=== PATIENT | female | born 1950 | race Caucasian/White ===

== ENCOUNTER 2017-01-15 08:30 | Outpatient (CLI) | payer MEDICARE, BC | END 2017-01-15 08:31 | disposition home or self-care (01) | DX: Z12.31 Encounter for screening mammogram for malignant neoplasm of breast (principal) ==

== ENCOUNTER 2017-01-15 08:31 | Outpatient (CLI) | payer MEDICARE, BC | END 2017-01-15 08:32 | disposition home or self-care (01) | DX: M85.88 Other specified disorders of bone density and structure, other site (principal) ==

== ENCOUNTER 2018-02-10 13:29 | Outpatient (CLI) | payer MEDICARE, BC ==
--- NOTE | 2018-02-12 15:10 | Mammography Report ---
Procedure Date: 02/10/2018 Accession Number: [id number] / [id number] Procedure: DWIGHT - Screening Mammo Dig Bilat CPT Code: FULL RESULT: EXAM: Screening Mammo Dig Bilat DATE: 02/10/2018 2:00 PM CLINICAL HISTORY: 67-year-old for screening COMPARISON: 01/15/2017, 11/03/2014, 11-12, 12/17/2012, 07/03/2010 TECHNIQUE: Bilateral CC and MLO views were obtained. FINDINGS: The breasts demonstrate scattered fibroglandular densities bilaterally. No suspicious masses, clustered microcalcifications, or regions of architectural distortion are identified. IMPRESSION: Negative examination RECOMMENDATION: Routine annual screening unless otherwise clinically indicated. BIRADS CATEGORY 1: Negative STANDARD QUALIFYING STATEMENTS: 1. This examination was reviewed with the aid of Computer-Aided Detection (CAD). 2. A negative or benign imaging report should not delay biopsy if clinically suspicious findings are present. Consider surgical consultation if warrented. More than 5% of cancers are not identified by imaging. 3. Dense breasts may obscure an underlying neoplasm.
== END 2018-02-10 13:30 | disposition home or self-care (01) ==
LOC: DI 13:29
PROVIDERS: ATTEND Internal Medicine
DX: Z12.31 Encounter for screening mammogram for malignant neoplasm of breast (principal)
CPT/HCPCS: 77067

== ENCOUNTER 2019-02-16 13:07 | Outpatient (CLI) | payer MEDICARE, BC ==
--- NOTE | 2019-02-16 15:07 | XRAY Report ---
Reason: R KNEE PAIN SWELLING Procedure Date: 02/16/2019 Accession Number: [id number] / [id number] Procedure: XR - Knee 3 View RT CPT Code: FULL RESULT: EXAM: RIGHT KNEE RADIOGRAPHY. EXAM DATE: 02/16/2019 01:34 PM. CLINICAL HISTORY: Right knee pain swelling. COMPARISON: None. TECHNIQUE: 3 views. FINDINGS: Bones: Normal. No fractures or bone lesions. Joints: There is a small joint effusion. No subluxation. There is mild marginal osteophytosis at the weightbearing compartments and along the medial patella. Soft Tissues: Normal. No soft tissue swelling. IMPRESSION: Mild degenerative changes. RADIA
== END 2019-02-16 13:08 | disposition home or self-care (01) ==
LOC: DI 13:07
PROVIDERS: ATTEND Physician Assistant Medical
DX: M17.11 Unilateral primary osteoarthritis, right knee (principal)

== ENCOUNTER 2019-02-25 16:53 | Outpatient (CLI) | payer MEDICARE, BC ==
--- NOTE | 2019-02-25 20:41 | MRI Report ---
Reason: RIGHT KNEE PAIN Procedure Date: 02/25/2019 Accession Number: [id number] / [id number] Procedure: MRI - Knee RT W/O CPT Code: FULL RESULT: EXAM: RIGHT KNEE MRI WITHOUT CONTRAST EXAM DATE: 02/25/2019 05:54 PM. CLINICAL HISTORY: Right knee pain. COMPARISON: KNEE 3 VIEW RT 02/16/2019 1:23 PM. TECHNIQUE: Multiplanar, multisequence T1-weighted and fluid-sensitive sequences of the knee without contrast. Other: None. FINDINGS: Bones: Focal marrow edema at the anterior aspect of the lateral tibial plateau with adjacent fat pad edema. Mild marrow edema at the posterior aspect lateral tibial plateau. Moderate chondromalacia at the lateral tibiofemoral compartment. Articular Cartilage: Severe chondromalacia at the medial patellar facet. Mild chondromalacia at the trochlear groove. Medial Meniscus: The medial meniscus is intact. Lateral Meniscus: Probable tear at the posterior horn of the lateral meniscus at the meniscal root. Cruciate Ligaments: The anterior and posterior cruciate ligaments are intact. Collateral Ligaments: The medial collateral and lateral collateral ligamentous structures are intact. Tendons: The quadriceps, patellar, semimembranosus, and popliteus tendons are unremarkable. Musculature: No edema or fatty atrophy. Other: Moderate quantity of fluid at the lateral patellar recess. Cyst, 1.4 cm in height, 9 mm in AP dimension and 1.5 cm in transverse dimension at the posterior aspect of the medial tibial plateau. At the midline of the posterior aspect proximal tibia deep to the popliteal vein, is a multiloculated synovial cyst 2.8 cm in height and 1.4 x 1.4 cm in transverse dimension. Small fluid collection at the gastrocnemius semimembranosus bursa. No loose bodies. The medial and lateral retinacula are intact. The subcutaneous tissues and fat pads are unremarkable. IMPRESSION: 1. Probable tear at the posterior horn lateral meniscus at the meniscal root. 2. Moderate chondromalacia at the lateral tibiofemoral compartment. 3. Severe chondromalacia at the medial patellar facet. 4. Focal bone bruise at the anterior aspect lateral tibial plateau with adjacent fat pad edema. Mild patchy marrow edema at the posterior aspect lateral tibial plateau. RADIA
== END 2019-02-25 16:54 | disposition home or self-care (01) ==
LOC: DI 16:53
PROVIDERS: ATTEND Physician Assistant Medical
DX: M22.41 Chondromalacia patellae, right knee (principal)

== ENCOUNTER 2020-10-18 14:31 | Outpatient (CLI) | payer MEDICARE, BC ==
--- NOTE | 2020-10-19 15:07 | Mammography Report ---
BILATERAL DIGITAL SCREENING MAMMOGRAM 3D/2D: 10/18/2020 CLINICAL: Routine screening. Comparison is made to exams dated: 01/15/2017 mammogram, 02/10/2018 mammogram, and 11/03/2014 mammogram - [facility]. There are scattered fibroglandular elements in both breasts. No significant masses, calcifications, or other findings are seen in either breast. There has been no significant interval change. IMPRESSION: NEGATIVE There is no mammographic evidence of malignancy. A 1 year screening mammogram is recommended. This exam was interpreted at Station ID: [id number]. NOTE: For mammograms, a report in lay terms will be sent to the patient. Approximately 15% of breast malignancies will not be visualized mammographically. In the management of a palpable breast mass, a negative mammogram must not discourage biopsy of a clinically suspicious lesion. Electronically Signed By: Theo Vaughan M.D. ar/penrad:10/18/2020 15:08:00 ACR BI-RADS Category 1: Negative 3341F PARENCHYMAL PATTERN: (A) - The breast(s) demonstrate(s) scattered fibroglandular densities. BI-RADS CATEGORY: (1) - 1 RECOMMENDATION: (ANNUAL) - Recommend routine annual screening mammography. [id number] 1 year screening LATERALITY: (B)
== END 2020-10-18 14:32 | disposition home or self-care (01) ==
LOC: DI 14:31
PROVIDERS: ATTEND Internal Medicine
DX: Z12.31 Encounter for screening mammogram for malignant neoplasm of breast (principal)

== ENCOUNTER 2020-10-18 14:33 | Outpatient (CLI) | payer MEDICARE, BC ==
--- NOTE | 2020-10-18 16:38 | DEXA Report ---
PROCEDURE: Dexa Spine and/or Hip INDICATIONS: POST MENOPAUSAL TECHNIQUE: Dual energy x-ray absorptiometry (DXA) was performed on a One Hour Translation System. Regions measur ed are the AP Spine, femoral neck, and if needed forearm. COMPARISON: DEXA 01/15/2017 FINDINGS: Lumbar Spine: Bone Mineral Density 1.140 g/cm/cm,T score -0.3, compared to -0.5 on prior exam. Left Hip: Bone Mineral Density 0.819 g/cm/cm,T score -1.5, compared to -1.3 on prior exam. Left Femoral Neck: Bone Mineral Density 0.773 g/cm/cm, T score -1.9, compared to -1.6 on prior exam. (T score greater or equal to -1.0: NORMAL) (T score from -1.1 to -2.4: OSTEOPENIA) (T score less than or equal to -2.5 to: OSTEOPOROSIS) Impression: Most prominent osteopenia is present within the left femoral neck as above. Overall appea julia of osteopenia has been progressive compared to prior exam. Patients with diagnosis of osteoporosis or osteopenia should have regular bone mineral density assess ment. For those eligible for Medicare, routine testing is allowed once every 2 years. Testing frequ ency can be increased for patients who have rapidly progressing disease or for those who are receivin g medical therapy to restore bone mass. Reviewed by: Mari Groves MD on 10/18/2020 4:37 PM PST Approved by: Mari Groves MD on 10/18/2020 4:37 PM PST Station ID: [id number]
== END 2020-10-18 14:34 | disposition home or self-care (01) ==
LOC: DI 14:33
PROVIDERS: ATTEND Internal Medicine
DX: Z13.820 Encounter for screening for osteoporosis (principal); N95.8 Other specified menopausal and perimenopausal disorders; M85.88 Other specified disorders of bone density and structure, other site

== ENCOUNTER 2021-10-06 15:48 | Outpatient (CLI) | payer MEDICARE, BC ==
--- NOTE | 2021-10-06 16:52 | Ultrasound Report ---
PROCEDURE: Ext Limited Non Vascular INDICATIONS: RIGHT HAND, 3 LUMPS UNLAR WRIST TECHNIQUE: Real-time scanning was performed of the right wrist, with image documentation. COMPARISON: None. FINDINGS: Synovial fluid collections surrounding the tendon within the ulnar aspect of the wrist and fifth digit is present. IMPRESSION: Synovial fluid surrounding the tendon within the ulnar aspect of the wrist and fifth dig it. Initial further assessment with MRI of the hand and wrist is recommended. Reviewed by: Jhon Reis MD on 10/06/2021 4:51 PM [facility] Approved by: Jhon Reis MD on 10/06/2021 4:51 PM [facility] Station ID: [id number]
== END 2021-10-06 15:49 | disposition home or self-care (01) ==
LOC: DI 15:48
PROVIDERS: ATTEND Physician Assistant
DX: R93.6 Abnormal findings on diagnostic imaging of limbs (principal)

== ENCOUNTER 2022-06-21 09:55 | Day surgery (SDC) | payer MEDICARE, BC ==
[~2022-06-21 09:55] MED LIST: BRIMONIDINE 0.2% OPHTH DROPS 5 ML ONE; BSS/LIDOCAINE/EPINEPHRINE 1 ML VIAL ONE; CYCLOPENTOLATE 1% OPHTH DROPS 2 ML ONE; EPINEPHrine 1 MG/ML AMP ONE; KETOROLAC 0.45% OPHTH DROPS ONE; PHENYLEPHRINE 2.5% OPHTH 2 ML DROPS ONE; PROPARACAINE 0.5% OPHTH DROPS 15 ML ONE; TIMOLOL 0.5% OPHTH DROPS ONE; TRIAMCIN/MOXIFLOX OPHTHALMIC 0.6 ML VIAL IO ONE; VANCOMYCIN OPHTH (TOPICAL) 10 MG/ML SYRINGE ONE
[2022-06-21] MEDS ORDERED: LACTATED RINGERS 1,000 ML IV ONE (10:20)
--- NOTE | 2022-06-21 10:51 | ANESTHESIA ---
Pre-Anesthesia VS, & Labs Height: 5 ft 4 in Weight (kg): 64 kg Body Mass Index: 24.2 BMI Classification: Normal - NPO >8 hours <Dany Barnhart - Last Filed: 06/21/22 10:49> - NPO >8 hours - Is Patient ?: No <Marylin Larson E - Last Filed: 06/21/22 10:59> - Diagnosis R senile combined cataract (Dany Barnhart) - Procedure Extraction R cataract w IOL (Dany Branhart) Vital Signs: Temp Pulse Resp BP Pulse Ox O2 Flow Rate 36.3 C L 63 11 L 147/73 H 100 06/21/22 10:14 06/21/22 10:14 06/21/22 10:14 06/21/22 10:14 06/21/22 10:14 Home Medications and Allergies <Dany Barnhart - Last Filed: 06/21/22 10:49> <Marylin Larson E - Last Filed: 06/21/22 10:59> Home Medications: Ambulatory Orders Simvastatin [Zocor] 10 mg PO DAILY 06/21/22 Simvastatin [Zocor] 10 mg PO DAILY 06/21/22 Allergies/Adverse Reactions: Allergies Allergy/AdvReac Type Severity Reaction Status Date / Time diphenhydramine AdvReac Unknown Verified 06/21/22 10:33 [From Benadryl] Anes History & Medical History - Anesthetic History Anesthesia Complications: reports: No previous complications Family history of Anesthesia Complications: Denies Family history of Malignant Hyperthermia: Denies - Medical History Cardiovascular: reports: High cholesterol Pulmonary: reports: None Gastrointestinal: reports: Colon polyps Urinary: reports: None Musculoskeletal: reports: Osteoarthritis Endocrine/Autoimmune: reports: None Skin: reports: None - Surgical History General: reports: Colonoscopy <Dany Barnhart P - Last Filed: 06/21/22 10:49> - Anesthetic History Anesthesia Complications: reports: No previous complications Family history of Anesthesia Complications: Denies Family history of Malignant Hyperthermia: Denies - Medical History Cardiovascular: reports: High cholesterol Pulmonary: reports: None Gastrointestinal: reports: Colon polyps Urinary: reports: None Musculoskeletal: reports: Osteoarthritis Endocrine/Autoimmune: reports: None Smoking Status: Never smoker Psychosocial: reports: Alcohol (occasional wine) History of Cancer?: No - Surgical History General: reports: Colonoscopy <Marylin Larson E - Last Filed: 06/21/22 10:59> Exam General: Alert, Oriented x3, Cooperative Mouth Openin Fingerbreadth Neck Mobility: Normal Mallampati classification: II <Dany Barnhart P - Last Filed: 06/21/22 10:49> General: Alert, Oriented x3, Cooperative Dental: WNL Mouth Openin Fingerbreadth Neck Mobility: Normal Mallampati classification: I Respiratory: Lungs clear Cardiovascular: Regular rate <Marylin Larson E - Last Filed: 06/21/22 10:59> Plan Anesthesia Type: MAC Consent for Procedure(s) Verified and Reviewed: Yes Code Status: Attempt Resuscitation ASA classification: 2-Mild systemic disease Is this case an emergency?: No <Marylin Larson E - Last Filed: 06/21/22 10:59>
[2022-06-21] MEDS ORDERED: MIDAZOLAM 2 MG/2 ML VIAL ONE (10:53)
[2022-06-21] MEDS ORDERED: BRIMONIDINE 0.2% OPHTH DROPS 5 ML OPTH ONE (11:23)
[2022-06-21] MEDS ORDERED: EPINEPHrine 1 MG/ML AMP IR ONE (11:23)
[2022-06-21] MEDS ORDERED: BSS/LIDOCAINE/EPINEPHRINE 1 ML SYRINGE IO ONE (11:24)
[2022-06-21] MEDS ORDERED: TIMOLOL 0.5% OPHTH DROPS OPTH ONE (11:24)
[2022-06-21] MEDS ORDERED: TRIAMCIN/MOXIFLOX OPHTHALMIC 0.6 ML VIAL IO ONE (11:24)
[2022-06-21] MEDS ORDERED: PROPARACAINE 0.5% OPHTH DROPS 15 ML EACHEYE ONE (11:25)
[2022-06-21] MEDS ORDERED: VANCOMYCIN OPHTH (TOPICAL) 10 MG/ML SYRINGE TOP ONE (11:25)
[2022-06-21] MEDS ORDERED: LACTATED RINGERS 700 ML IV ONE (11:32)
--- NOTE | 2022-06-21 11:42 | OPERATIVE REPORT ---
Operative Report - Procedure Note Pathology: Date of Surgery: 06/21/22 Preop Dx: Visually significant cataract right eye. This was the first cataract surgery. Postop Dx: Same Procedure: Phacoemulsification with posterior chamber intraocular lens implant right eye Surgeon: Dr. Yaniv Chou Anesthesia: Monitored anesthesia care Complications: None Operative Indications: This is a 72-year-old F with progressive vision loss in the right eye due to 3+ nuclear sclerotic and trace posterior subcapsular cataract. Best corrected visual acuity was 20/30 with glare to 20/60 vision in the right eye. Indications for surgery were: - Overall decrease in vision - Difficulty seeing words, closed captions, or game scores on TV - Difficulty seeing street signs - Difficulty driving in low light or at night - Difficulty driving at night because of headlights from other vehicles - Difficulty with glare or bright lights in any situation The patient was consented at length concerning the risks and benefits of cataract surgery after which the patient expressed a desire to proceed with surgery. Operative Procedure: The patient was taken into OR#3 and placed under monitored anesthesia care. A surgical time-out was conducted confirming correct patient, correct procedure, and correct surgical site. The patient was given topical anesthesia and then prepped and draped in the usual sterile fashion. The eye was entered at the 6 and 3 oclock positions. Intracameral Shugarcaine was injected into the anterior chamber followed by a dispersive viscoelastic. A continuous-tear curvilinear capsulorhexis was performed. The nucleus was hydrodissected and phacoemulsified. The cortex was evacuated using automated infusion and aspiration. A cohesive viscoelastic was injected into the capsular bag and a 20.5 diopter intraocular lens was inserted into the bag. Infusion and aspiration were used to evacuate the viscoelastic materials from the eye. The wounds were hydrated and the eye inflated to physiologic pressure using balanced salt solution. Approximately 0.25ml of a mixture of triamcinolone and moxifloxacin was injected trans-sclerally into the vitreous in the inf erotemporal quadrant using a 30 gauge cannula. An additional 0.55ml of a mixture of triamcinolone and moxifloxacin was injected subconjunctivally in the superior quadrant for infection and inflammation prophylaxis. Wound integrity was checked with Weck-Susan sponges. The patient was taken from the operating room in good condition and given post-op instructions.
[2022-06-21 11:48] VITALS: BP 120/58
--- NOTE | 2022-06-21 11:54 | ANESTHESIA POST OP EVALUATION ---
Anesthesia Post Eval - Post Anesthesia Eval Vitals: Last Vital Signs Temp 36.2 C L 06/21/22 11:32 Pulse 63 06/21/22 11:32 Resp 16 06/21/22 11:45 BP 120/58 L 06/21/22 11:45 Pulse Ox 99 06/21/22 11:45 O2 Flow Rate CV Function Including HR & BP: Stable Pain Control: Satisfactory Nausea & Vomiting: Negative Mental Status: Baseline Respiratory Status: Airway Patent Hydration Status: Satisfactory Anesthesia Complications: None
== END 2022-06-21 09:56 | disposition home or self-care (01) ==
LOC: SDS 09:55
PROVIDERS: ATTEND Ophthalmology
DX: H25.811 Combined forms of age-related cataract, right eye (principal)
CPT/HCPCS: 66984; A9270; J3490; J7120

== ENCOUNTER 2023-06-05 08:19 | Outpatient (CLI) | payer MEDICARE, BC ==
--- NOTE | 2023-06-07 08:23 | Mammography Report ---
BILATERAL DIGITAL SCREENING MAMMOGRAM 3D/2D: 06/05/2023 CLINICAL: Routine screening. Comparison is made to exams dated: 10/18/2020 mammogram, 02/10/2018 mammogram, 01/15/2017 mammogram, an d 11/03/2014 mammogram - [facility]. Both breasts are heterogeneously dense, which may obscure small masses (category c / 51-75% glandular tissue). There is an asymmetry in the left breast middle depth superior region seen on the mediolateral obliqu e view only. No other significant masses, calcifications, or other findings are seen in either breast. IMPRESSION: INCOMPLETE: NEEDS ADDITIONAL IMAGING EVALUATION The asymmetry in the left breast is indeterminate. Additional views with possible ultrasound are rec ommended. Based on the Tyrer Cuzick model (a risk assessment model) the patients lifetime risk is 3.7% and her 10 year risk is 3.0%. According to the ACR, ACS, and NCCN guidelines, an annual breast MRI exam darian g with mammogram is recommended if the patients lifetime risk is 20% or greater. This exam was interpreted at Station ID: [id number]. NOTE: For mammograms, a report in lay terms will be sent to the patient. Approximately 15% of breast malignancies will not be visualized mammographically. In the management of a palpable breast mass, a negative mammogram must not discourage biopsy of a clinically suspicious lesion. Electronically Signed By: Evelyne barnett/nick:06/06/2023 17:11:55 ACR BI-RADS Category 0: Incomplete 3340F PARENCHYMAL PATTERN: (D) - The breast(s) demonstrate(s) heterogeneously dense fibroglandular charisse william. BI-RADS CATEGORY: (0) - 0 Mammo and [place] [id number] Immediate follow-up LATERALITY: (B)
== END 2023-06-05 08:20 | disposition home or self-care (01) ==
LOC: DI 08:19
PROVIDERS: ATTEND Internal Medicine
DX: Z12.31 Encounter for screening mammogram for malignant neoplasm of breast (principal); R92.8 Other abnormal and inconclusive findings on diagnostic imaging of breast

== ENCOUNTER 2023-06-05 08:19 | Outpatient (CLI) | payer MEDICARE, BC ==
--- NOTE | 2023-06-05 11:51 | DEXA Report ---
PROCEDURE: Dexa Spine and/or Hip INDICATIONS: POST MENOPAUSAL TECHNIQUE: Dual energy x-ray absorptiometry (DXA) was performed on a Incentive System. Regions measur ed are the AP Spine, femoral neck, and if needed forearm. COMPARISON: DEXA 10/18/2020 FINDINGS: Lumbar Spine: Bone Mineral Density 1.060 g/cm/cm,T score -1.0, compared to -0.3. Left Femoral Neck: Bone Mineral Density 0.762 g/cm/cm, T score -2.0, compared to -1.9. Left Hip: Bone Mineral Density 0.819 g/cm/cm,T score -1.5, compared to -1.4. (T score greater or equal to -1.0: NORMAL) (T score from -1.1 to -2.4: OSTEOPENIA) (T score less than or equal to -2.5 to: OSTEOPOROSIS) Impression: By WHO criteria, this patient has relatively stable osteopenia within the left femoral neck and hip. There has been progression of bone loss although remaining at the upper limits of normal within the l umbar spine since prior exam. Patients with diagnosis of osteoporosis or osteopenia should have regular bone mineral density assess ment. For those eligible for Medicare, routine testing is allowed once every 2 years. Testing frequ ency can be increased for patients who have rapidly progressing disease or for those who are receivin g medical therapy to restore bone mass. Reviewed by: Mari Groves MD on 06/05/2023 11:50 AM PDT Approved by: Mari Groves MD on 06/05/2023 11:50 AM PDT Station ID: [id number]
== END 2023-06-05 08:20 | disposition home or self-care (01) ==
LOC: DI 08:19
PROVIDERS: ATTEND Internal Medicine
DX: N95.8 Other specified menopausal and perimenopausal disorders (principal); M85.89 Other specified disorders of bone density and structure, multiple sites

== ENCOUNTER 2023-06-24 10:15 | Outpatient (CLI) | payer MEDICARE, BC ==
--- NOTE | 2023-06-25 10:17 | Mammography Report ---
UNILATERAL LEFT DIGITAL DIAGNOSTIC MAMMOGRAM 3D/2D WITH SPOT COMPRESSION: 06/24/2023 CLINICAL: Patient returns today to evaluate an asymmetry in the left breast. Comparison is made to exams dated: 06/05/2023 mammogram, 10/18/2020 mammogram, 02/10/2018 mammogram, mammogram, and 11/03/2014 mammogram - [facility]. The left breast is heterogeneously dense, which may obscure small masses (category c / 51-75% glandul ar tissue). There is an asymmetry in the left breast middle depth superior region seen on the mediolateral obliqu e view only. This is not seen in additional views. No other significant masses or calcifications are seen in the breast. IMPRESSION: INCOMPLETE: NEEDS ADDITIONAL IMAGING EVALUATION The asymmetry in the left breast is indeterminate. A targeted ultrasound is recommended and will immediately follow. Based on the Tyrer Cuzick model (a risk assessment model) the patients lifetime risk is 3.7% and her 10 year risk is 3.0%. According to the ACR, ACS, and NCCN guidelines, an annual breast MRI exam darian g with mammogram is recommended if the patients lifetime risk is 20% or greater. This exam was interpreted at Station ID: [id number]. NOTE: For mammograms, a report in lay terms will be sent to the patient. Approximately 15% of breast malignancies will not be visualized mammographically. In the management of a palpable breast mass, a negative mammogram must not discourage biopsy of a clinically suspicious lesion. Electronically Signed By: Theo Zayas M.D. slc/:06/24/2023 11:16:03 ACR BI-RADS Category 0: Incomplete 3340F PARENCHYMAL PATTERN: (D) - The breast(s) demonstrate(s) heterogeneously dense fibroglandular parenchy ma. BI-RADS CATEGORY: (0) - 0 Ultrasound [id number] Immediate follow-up LATERALITY: (B)
--- NOTE | 2023-06-25 10:18 | Ultrasound Report ---
LIMITED ULTRASOUND OF LEFT BREAST: 06/24/2023 CLINICAL: Patient returns today to evaluate a focal asymmetry in the left breast. Comparison is made to exams dated: 06/24/2023 mammogram, 06/05/2023 mammogram, 10/18/2020 mammogram, a nd 02/10/2018 mammogram - [facility]. Real-time ultrasound of the left breast 12-1 o'clock region was performed. Rodríguez scale images of the real-time examination were reviewed. No significant abnormalities were seen sonographically in the left breast. IMPRESSION: NEGATIVE There is no sonographic evidence of malignancy. A 1 year screening mammogram is recommended. Exam findings were conveyed to the patient. This exam was interpreted at Station ID: [id number]. Electronically Signed By: Theo Zayas M.D. slc/:06/24/2023 11:39:35 Ultrasound BI-RADS: 1 Negative BI-RADS CATEGORY: (1) - 1 Mammogram [id number] 1 year screening LATERALITY: (B)
== END 2023-06-24 10:16 | disposition home or self-care (01) ==
LOC: DI 10:15
PROVIDERS: ATTEND Internal Medicine
DX: R92.8 Other abnormal and inconclusive findings on diagnostic imaging of breast (principal); R92.332 Mammographic heterogeneous density, left breast

== ENCOUNTER 2023-07-17 09:58 | Emergency (ER) | payer MEDICARE, BC ==
[2023-07-17 10:17] VITALS: O2SAT 98
--- NOTE | 2023-07-17 10:45 | XRAY Report ---
PROCEDURE: Hand 3 View RT INDICATIONS: Trauma TECHNIQUE: 3 views of the hand(s) acquired. COMPARISON: None. FINDINGS: Bones: No fractures or dislocations. Degenerative changes of the interphalangeal joints and first CM C. 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 No suspicious bony lesions. Soft tissues: No suspicious soft tissue calcifications or masses. IMPRESSION: No acute bony abnormality. Reviewed by: Moises Allen MD on 07/17/2023 10:44 AM [facility] Approved by: Moises Allen MD on 07/17/2023 10:44 AM [facility] Station ID: [id number]
--- NOTE | 2023-07-17 10:45 | XRAY Report ---
PROCEDURE: Wrist 4 View RT INDICATIONS: Trauma TECHNIQUE: 4 views of the wrist were acquired. COMPARISON: None. FINDINGS: Bones: No fractures or dislocations. Degenerative changes of the first CMC. No suspicious bony lesi ons. Soft tissues: No suspicious soft tissue calcifications or masses. IMPRESSION: No acute bony abnormality. Reviewed by: Moises Allen MD on 07/17/2023 10:43 AM PST Approved by: Moises Allen MD on 07/17/2023 10:43 AM PST Station ID: [id number]
--- NOTE | 2023-07-17 11:54 | ED Physician Documentation ---
History of Present Illness - Stated complaint Stated Complaint: GLF,RT HAND INJ - Chief complaint Chief Complaint: Trauma Ext - Additonal information Additional information: This is a very very pleasant 73-year-old female presents emergency department for evaluation of acute right hand and wrist injury. She states that she was going out to feed the goats this morning when she slipped on her steps bracing her fall backwards. She landed directly on her bottom. Did not strike her head or lose consciousness. She is not anticoagulated. Since the fall she has had pain in the right hand mostly of the thumb and radial area. Patient is left-hand dominant. No open sores or lesions. Review of Systems Musculoskeletal: reports: Joint pain PD PAST MEDICAL HISTORY - Past Medical History Past Medical History: Yes Cardiovascular: High cholesterol Respiratory: None Endocrine/Autoimmune: None GI: Colon polyps : None HEENT: Chronic vision loss Musculoskeletal: Osteoarthritis Derm: None - Past Surgical History Past Surgical History: Yes General: Colonoscopy HEENT: Cataracts - Present Medications Home Medications: Ambulatory Orders Medication Instructions Recorded Confirmed Simvastatin [Zocor] 10 mg PO DAILY 06/21/22 06/21/22 Calcium Carbonate [Calcium] 07/19/22 Cholecalciferol (Vitamin D3) 07/19/22 [Vitamin D3] Cyanocobalamin (Vitamin B-12) 07/19/22 [Vitamin B-12] Melatonin/Pyridoxine [Melatonin 5 07/19/22 mg Tablet] Zinc Gluconate [Zinc] 07/19/22 - Allergies Allergies/Adverse Reactions: Allergies Allergy/AdvReac Type Severity Reaction Status Date / Time diphenhydramine AdvReac Unknown Verified 07/17/23 10:06 [From Benadryl] - Social History Does the pt smoke?: No Smoking Status: Never smoker Does the pt drink ETOH?: No Does the pt have substance abuse?: No - Immunizations Immunizations are current?: Yes - POLST Patient has POLST: No PD ED PE EXPANDED - Extremities Extremities: Right hand (Obvious arthritic changes to the MCP joint of the index and middle finger. Some tenderness noted over the MCP and proximal first metaca rpal joint. Positive anatomic snuffbox tenderness. Normal flexion extension of the wrist. 2+ radial pulse. Neurovascularly intact.) Results - Vitals Vitals: Vital Signs - 24 hr 07/17/23 10:06 Temperature 36.5 C Heart Rate 76 Respiratory 16 Rate Blood Pressure 140/57 H O2 Saturation 98 Oxygen O2 Source Room air - Rads (name of study) left hand/wrist xr Relevant Findings:: Final report received (No fractures noted. Arthritic changes present) PD Medical Decision Making - ED course Complexity details: d/w patient ED course: 73-year-old female here for pain in the right hand and wrist after falling down stairs. On exam she has some obvious arthritic changes to the MCP joints of the thumb index and middle fingers. She does have anatomic snuffbox tenderness. I however suspect that this is secondary to arthritis in the joint not actual scaphoid injury but given the location and nature patient will be placed in a Velcro thumb spica splint. Advised Tylenol and Motrin over the next week. If not markedly improved consider follow-up with PCP for repeat imaging to rule out occult fracture. Departure - Departure Disposition: 01 Home, Self Care Clinical Impression: Arthritis of right hand Fall Qualifiers: Encounter type: initial encounter Qualified Code(s): W19.XXXA - Unspecified fall, initial encounter Contusion of hand, right Qualifiers: Encounter type: initial encounter Qualified Code(s): S60.221A - Contusion of right hand, initial encounter Condition: Stable Record reviewed to determine appropriate education?: Yes Comments: Katina the x-ray do not show an obvious fracture in either the hand or the wrist. The x-ray however does demonstrate some fairly prominent arthritic changes to multiple joints in the hand and thumb. But because you have tenderness in an area of the wrist that contains a bone called the scaphoid bone I am concerned that this could represent an occult or difficult to see fracture. The recommendation is for you to wear the Velcro splint for the next week. I recommend that you take Tylenol and ibuprofen [id number] for hand discomfort. If you find that your symptoms or not markedly improved in 1 week time you do need to follow-up with your PCP or local walk-in clinic to have the hand x-rayed and further evaluation completed. Return to the ER if you have any new or worsening symptoms.
[2023-07-17 12:10] VITALS: BP 130/60
== END 2023-07-17 12:08 | disposition home or self-care (01) ==
LOC: ED 09:58
DX: S60.221A Contusion of right hand, initial encounter (principal); W10.9XXA Fall (on) (from) unspecified stairs and steps, initial encounter; Y93.01 Activity, walking, marching and hiking; Y92.008 Other place in unspecified non-institutional (private) residence as the place of occurrence of the external cause; M19.041 Primary osteoarthritis, right hand; E78.00 Pure hypercholesterolemia, unspecified; Z79.899 Other long term (current) drug therapy
CPT/HCPCS: 99283